=== PATIENT | female | born 1935 | race Caucasian/White ===

== ENCOUNTER 2017-12-10 10:31 | Outpatient (CLI) | payer MEDICARE, OTHER ==
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
== END 2017-12-10 10:32 | disposition home or self-care (01) ==
LOC: TBSIIMAG 10:31
PROVIDERS: ATTEND Specialist
DX: S22.000A Wedge compression fracture of unspecified thoracic vertebra, initial encounter for closed fracture (principal); S22.32XA Fracture of one rib, left side, initial encounter for closed fracture; M47.894 Other spondylosis, thoracic region
CPT/HCPCS: 72146